=== PATIENT | female | born 1955 | race African-American/Black ===

== ENCOUNTER 2020-09-12 23:13 | Observation (INO) ==
[2020-09-12 23:40] LABS: Basophils # 0.1 10*3/uL (0.0-0.2); Basophils % 0.5 % (0.0-0.8); Eosinophils # 0.3 10*3/uL (0.0-0.87); Eosinophils % 2.3 % (0.00-10.9); Hematocrit 42.1 VOL% (35.7-47.0); Hemoglobin 13.5 GM/DL (12.0-16.0); Immature Granulocytes % 0.4 %; Immature Granulocytes Absolute 0.06 #; Lymphocytes # 3.5 10*3/uL (1.4-4.0); Lymphocytes % 25.9 % (21.3-54.2); Mean Corpuscular HGB Conc 32.1 GM/DL (32-36); Mean Platelet Volume 9.9 FL (9.6-12.0); Monocytes % 6.6 % (1.7-12.7); Neutrophils % 64.3 % (38.7-73.9); Platelet Count 298 T/CUMM (130-400); Red Blood Count 4.84 MC/CUMM (3.8-5.5); Red Cell Distribution Width 13.6 % (9.3-17.3); White Blood Count 13.7 T/CUMM (4-12)
[2020-09-13 00:03] LABS: Alanine Aminotransferase 15 U/L (13-56); Albumin 3.4 G/DL (3.4-5.0); Alkaline Phosphatase 61 U/L (45-117); Aspartate Amino Transferase 20 U/L (0-37); Bilirubin,Total < 0.39 MG/DL (0.2-1.0); Blood Urea Nitrogen 11 MG/DL (7-18); Calcium 8.8 MG/DL (8.5-10.1); Carbon Dioxide 31 MMOL/L (21-32); Estimated Glom Filtration Rate 117 ML/MIN; Glucose 113 MG/DL (74-106); Osmolality,Calculated 278.4 MOS/KG (273-304); PT Patient Result 10.5 SECS (9.8-11.9); Potassium 4.1 MMOL/L (3.5-5.1); Sodium 140 MMOL/L (136-145); Total Protein 6.8 G/DL (6.4-8.3)
[2020-09-13] MEDS ORDERED: PANTOPRAZOLE 40 MG VIAL IV STA (01:18)
[2020-09-13] MEDS ORDERED: ONDANSETRON 4 MG/2 ML VIAL IV PRN (01:18)
[2020-09-13] MEDS ORDERED: MORPHINE 4 MG/1 ML VIAL IV PRN (01:18)
[2020-09-13] MEDS ORDERED: GLUCAGON 1 MG VIAL IM PRN (01:18)
[2020-09-13] MEDS ORDERED: hydrALAZINE 20 MG/1 ML VIAL IV PRN (01:18)
[2020-09-13] MEDS ORDERED: DEXTROSE 50% 25 GM/50 ML VIAL IV PRN (01:18)
[2020-09-13] MEDS ORDERED: NICOTINE 21 MG/24 HR PATCH TRANSDERM PRN (01:18)
[2020-09-13] MEDS ORDERED: NITROGLYCERIN SL 0.4 MG TABLET SL PRN (01:30)
[2020-09-13] MEDS ORDERED: FUROSEMIDE 40 MG TABLET PO PRN (01:30)
[2020-09-13 02:16] LABS: Risk Ratio 3.71; VLDL CHOLESTEROL 18.6 MG/DL
[2020-09-13] MEDS: ALBUTEROL/IPRATROPIUM 3 ML NEB RESP TX SCH ×2 (07:10→13:04)
[2020-09-13] MEDS ORDERED: lisinopriL 20 MG TABLET PO SCH (09:00)
[2020-09-13] MEDS ORDERED: ASPIRIN EC 81 MG TABLET PO SCH (09:00)
[2020-09-13] MEDS ORDERED: PANTOPRAZOLE 40 MG TABLET PO SCH (09:00)
[2020-09-13] MEDS ORDERED: CLOPIDOGREL 75 MG TABLET PO SCH (09:00)
[2020-09-13] MEDS ORDERED: ENOXAPARIN 40 MG/0.4 ML SYRINGE SUBCUT SCH (09:00)
[2020-09-13] MEDS ORDERED: atenoloL 25 MG TABLET PO SCH (09:00)
[2020-09-13 12:07] VITALS: BP 131/69
[2020-09-13] MEDS ORDERED: SIMVASTATIN 20 MG TABLET PO SCH (21:00)
== END 2020-09-13 14:31 | disposition home or self-care (01) ==
LOC: EDUNIT# → EDBD → N.ED 23:13 → N.EDINP 23:13 → N.TELES 09-13 01:41
PROVIDERS: ADMIT Internal Medicine; ATTEND Internal Medicine

== ENCOUNTER 2022-03-22 23:50 | Inpatient (IN) ==
[2022-03-23] MEDS ORDERED: HYDROmorphone 1 MG/1 ML SYRINGE IV STA ×2 (00:25→01:26)
[2022-03-23] MEDS ORDERED: ONDANSETRON 4 MG/2 ML VIAL IV STA (00:25)
[2022-03-23] MEDS ORDERED: SODIUM CHLORIDE 0.9% 1,000 ML IV STA (00:25)
[2022-03-23 00:39] LABS: Basophils # 0.1 10*3/uL (0.0-0.2); Basophils % 0.5 % (0.0-0.8); Eosinophils # 0.2 10*3/uL (0.0-0.87); Eosinophils % 1.4 % (0.00-10.9); Hematocrit 43.8 VOL% (35.7-47.0); Hemoglobin 13.7 GM/DL (12.0-16.0); Immature Granulocytes % 0.5 %; Immature Granulocytes Absolute 0.07 #; Lymphocytes # 2.3 10*3/uL (1.4-4.0); Lymphocytes % 14.6 % (21.3-54.2); Mean Corpuscular HGB Conc 31.3 GM/DL (32-36); Mean Platelet Volume 10.2 FL (9.6-12.0); Monocytes # 0.7 10*3/uL (0.11-0.8); Monocytes % 4.3 % (1.7-12.7); Neutrophils % 78.7 % (38.7-73.9); Platelet Count 255 T/CUMM (130-400); Red Blood Count 4.92 MC/CUMM (3.8-5.5); Red Cell Distribution Width 14.2 % (9.3-17.3); White Blood Count 15.4 T/CUMM (4-12)
[2022-03-23 00:53] LABS: Calcium 9.2 MG/DL (8.5-10.1); Osmolality,Calculated 282.3 MOS/KG (273-304); Potassium 3.8 MMOL/L (3.5-5.1)
[2022-03-23 01:06] LABS: PT Patient Result 10.6 SECS (10.1-12.1); Partial Thromboplastin Time 28.4 SECS (23.7-32.9)
[2022-03-23] MEDS ORDERED: hydrALAZINE 20 MG/1 ML VIAL IV STA (01:26)
[2022-03-23] MEDS ORDERED: ALUMINUM/MAGNES/SIMETH MAX STR 30 ML UDCUP PO PRN (01:30)
[2022-03-23] MEDS ORDERED: ONDANSETRON 4 MG/2 ML VIAL IV PRN ×2 (01:30→15:55)
[2022-03-23] MEDS ORDERED: DEXTROSE 10% 250 ML BAG IV PRN (01:30)
[2022-03-23] MEDS ORDERED: GLUCAGON 1 MG VIAL IM PRN (01:30)
[2022-03-23 02:13] LABS: Bacteria,Urine Occasional /HPF (Few); Bilirubin,Urine Negative (Negative); Glucose,Urine (UA) Negative (Negative); Ketones,Urine Negative (Negative); Mucus,Urine Occasional /LPF (Occasional); Nitrite,Urine Negative (Negative); Protein,Urine Negative (Negative); RBC,Urine 5 /HPF (0-4); Urine Appearance Slightly Cloudy (Clear); Urine Color Light Yellow (Yellow); Urine Specific Gravity 1.015 (1.001-1.035); Urine pH 6.5 (4.5-8.0)
[2022-03-23 02:14] LABS: Blood, Urine Small mg/dL (Negative); Urine Urobilinogen 0.2 eU/dL (<2.0)
[2022-03-23] MEDS ORDERED: CLORAZEPATE 3.75 MG TABLET PO PRN (02:27)
[2022-03-23] MEDS ORDERED: hydrALAZINE 20 MG/1 ML VIAL IV PRN (02:27)
[2022-03-23] MEDS: HYDROmorphone 1 MG/1 ML SYRINGE IV PRN ×2 (05:15→12:30)
[2022-03-23] MEDS ORDERED: PSEUDOEPHEDRINE 30 MG TABLET PO PRN (11:25)
[2022-03-23] MEDS: DOCUSATE SODIUM 100 MG CAPSULE PO SCH ×2 (12:11→21:46)
[2022-03-23] MEDS: PANTOPRAZOLE 40 MG TABLET PO SCH (12:11)
[2022-03-23] MEDS: SODIUM CHLORIDE 0.9% 1,000 ML IV SCH (12:32)
[2022-03-23] MEDS ORDERED: ONDANSETRON 4 MG/2 ML VIAL ONE (13:09)
[2022-03-23] MEDS ORDERED: ETOMIDATE 40 MG/20 ML VIAL IV ONE (13:09)
[2022-03-23] MEDS ORDERED: LIDOCAINE 2% 5 ML VIAL ONE (13:09)
[2022-03-23] MEDS ORDERED: ROCURONIUM 50 MG/5 ML VIAL IV ONE ×2 (13:09→15:20)
[2022-03-23] MEDS ORDERED: fentaNYL 100 MCG/2 ML VIAL ONE (13:09)
[2022-03-23] MEDS ORDERED: DEXAMETHASONE 4 MG/1 ML VIAL ONE (13:09)
[2022-03-23] MEDS ORDERED: propofoL 200 MG/20 ML VIAL IV ONE (13:09)
[2022-03-23] MEDS ORDERED: CLINDAMYCIN INJ 900 MG/50 ML PREMIX IV ONE (13:23)
[2022-03-23] MEDS ORDERED: PHENYLEPHRINE 1 MG/10 ML SYRINGE IV ONE ×2 (14:28→15:06)
[2022-03-23] MEDS ORDERED: SEVOFLURANE 1 UNIT/15 MINUTE INH ONE ×3 (14:30→15:06)
[2022-03-23] MEDS ORDERED: SUGAMMADEX 200 MG/2 ML VIAL IV ONE (15:38)
[2022-03-23] MEDS ORDERED: HYDROmorphone 1 MG/1 ML SYRINGE IV PRN (15:55)
[2022-03-23] MEDS ORDERED: FLUTICASONE 50 MCG NASAL SPRAY 16 GM BOTTLE BOTH NARES PRN (21:14)
[2022-03-23] MEDS ORDERED: predniSONE 10 MG TABLET PO PRN (21:14)
[2022-03-23] MEDS ORDERED: BECLOMETHASONE 80 MCG/PUFF INHALER 8.7 GM INH PRN (21:14)
[2022-03-23] MEDS ORDERED: hydrOXYzine HCL 25 MG TABLET PO PRN (21:14)
[2022-03-23] MEDS ORDERED: NITROGLYCERIN SL 0.4 MG TABLET SL PRN (21:14)
[2022-03-23] MEDS ORDERED: FUROSEMIDE 40 MG TABLET PO PRN (21:14)
[2022-03-23] MEDS: SIMVASTATIN 20 MG TABLET PO SCH (21:44)
[2022-03-23] MEDS: atenoloL 25 MG TABLET PO SCH (21:45)
[2022-03-23] MEDS: CHOLECALCIFEROL 1,000 UNIT TABLET PO SCH (21:45)
[2022-03-23] MEDS: ASPIRIN EC 81 MG TABLET PO SCH (21:46)
[2022-03-23] MEDS: MULTIVITAMIN (CENTRUM) TABLET PO SCH (21:46)
[2022-03-23] MEDS ORDERED: oxyCODONE/ACETAMINOPHEN 5-325 MG TABLET PO PRN (21:55)
[2022-03-23] MEDS ORDERED: diphenhydrAMINE CAP 25 MG CAPSULE PO PRN (21:58)
[2022-03-23] MEDS: BUDESONIDE/FORMOTEROL 160-4.5 INHALER 6 GM INH SCH (22:12)
[2022-03-23] MEDS: LATANOPROST 0.005% OPH SOLN 2.5 ML BOTTLE RIGHT EYE SCH (22:12)
[2022-03-24] MEDS: SODIUM CHLORIDE 0.9% 1,000 ML IV SCH ×2 (02:29→14:20)
[2022-03-24] MEDS: HYDROmorphone 1 MG/1 ML SYRINGE IV PRN ×4 (02:37→22:50)
[2022-03-24 05:24] LABS: Basophils # 0.1 10*3/uL (0.0-0.2); Basophils % 0.3 % (0.0-0.8); Eosinophils # 0.1 10*3/uL (0.0-0.87); Eosinophils % 0.8 % (0.00-10.9); Hematocrit 34.8 VOL% (35.7-47.0); Immature Granulocytes % 0.5 %; Immature Granulocytes Absolute 0.07 #; Lymphocytes # 2.3 10*3/uL (1.4-4.0); Lymphocytes % 15.6 % (21.3-54.2); Mean Corpuscular HGB Conc 31.6 GM/DL (32-36); Mean Corpuscular Volume 88.8 FL (87-102); Mean Platelet Volume 10.4 FL (9.6-12.0); Monocytes # 0.8 10*3/uL (0.11-0.8); Monocytes % 5.6 % (1.7-12.7); Neutrophils % 77.2 % (38.7-73.9); Platelet Count 176 T/CUMM (130-400); Red Blood Count 3.92 MC/CUMM (3.8-5.5); Red Cell Distribution Width 14.3 % (9.3-17.3); White Blood Count 14.6 T/CUMM (4-12)
[2022-03-24 05:37] LABS: Osmolality,Calculated 279.5 MOS/KG (273-304); Potassium 3.6 MMOL/L (3.5-5.1)
[2022-03-24] MEDS ORDERED: BUDESONIDE 0.5 MG/2 ML NEB RESP TX SCH (07:00)
[2022-03-24] MEDS: PANTOPRAZOLE 40 MG TABLET PO SCH (08:38)
[2022-03-24] MEDS: DOCUSATE SODIUM 100 MG CAPSULE PO SCH ×2 (08:38→21:49)
[2022-03-24] MEDS: MULTIVITAMIN (CENTRUM) TABLET PO SCH ×2 (08:38→21:49)
[2022-03-24] MEDS: BUDESONIDE/FORMOTEROL 160-4.5 INHALER 6 GM INH SCH ×2 (08:39→21:46)
[2022-03-24] MEDS: APIXABAN 2.5 MG TABLET PO SCH ×2 (14:23→21:49)
[2022-03-24] MEDS: ACETAMINOPHEN 325 MG TABLET PO PRN (20:06)
[2022-03-24] MEDS: atenoloL 25 MG TABLET PO SCH (21:48)
[2022-03-24] MEDS: SIMVASTATIN 20 MG TABLET PO SCH (21:50)
[2022-03-24] MEDS: ASPIRIN EC 81 MG TABLET PO SCH (21:50)
[2022-03-24] MEDS: CHOLECALCIFEROL 1,000 UNIT TABLET PO SCH (21:52)
[2022-03-24] MEDS: LATANOPROST 0.005% OPH SOLN 2.5 ML BOTTLE RIGHT EYE SCH (21:52)
[2022-03-25] MEDS: SODIUM CHLORIDE 0.9% 1,000 ML IV SCH ×2 (02:46→18:19)
[2022-03-25 05:29] LABS: Basophils # 0.1 10*3/uL (0.0-0.2); Basophils % 0.3 % (0.0-0.8); Eosinophils # 0.2 10*3/uL (0.0-0.87); Eosinophils % 1.3 % (0.00-10.9); Hematocrit 34.3 VOL% (35.7-47.0); Hemoglobin 10.7 GM/DL (12.0-16.0); Immature Granulocytes % 0.5 %; Immature Granulocytes Absolute 0.09 #; Lymphocytes # 1.8 10*3/uL (1.4-4.0); Lymphocytes % 10.1 % (21.3-54.2); Mean Corpuscular HGB Conc 31.2 GM/DL (32-36); Mean Corpuscular Volume 88.4 FL (87-102); Mean Platelet Volume 10.7 FL (9.6-12.0); Monocytes # 1.3 10*3/uL (0.11-0.8); Neutrophils % 80.8 % (38.7-73.9); Platelet Count 171 T/CUMM (130-400); Red Blood Count 3.88 MC/CUMM (3.8-5.5); White Blood Count 18.1 T/CUMM (4-12)
[2022-03-25 05:34] LABS: Calcium 8.3 MG/DL (8.5-10.1); Osmolality,Calculated 278.4 MOS/KG (273-304); Potassium 3.7 MMOL/L (3.5-5.1)
[2022-03-25] MEDS: ACETAMINOPHEN 325 MG TABLET PO PRN (07:37)
[2022-03-25] MEDS: DOCUSATE SODIUM 100 MG CAPSULE PO SCH ×2 (09:25→22:16)
[2022-03-25] MEDS: MULTIVITAMIN (CENTRUM) TABLET PO SCH ×2 (09:25→22:15)
[2022-03-25] MEDS: PANTOPRAZOLE 40 MG TABLET PO SCH (09:25)
[2022-03-25] MEDS: APIXABAN 2.5 MG TABLET PO SCH ×2 (09:25→22:14)
[2022-03-25] MEDS ORDERED: LEVOFLOXACIN INJ 750 MG/150 ML PREMIX IV SCH (09:30)
[2022-03-25] MEDS: BUDESONIDE/FORMOTEROL 160-4.5 INHALER 6 GM INH SCH ×2 (09:30→22:16)
[2022-03-25] MEDS: HYDROmorphone 1 MG/1 ML SYRINGE IV PRN ×2 (09:54→15:29)
[2022-03-25] MEDS: cefTRIAXone 1,000 MG in SODIUM CHLORIDE 0.9% 100 ML IV SCH (12:22)
[2022-03-25] MEDS: DOXYCYCLINE HYCLATE INJ 100 MG in SODIUM CHLORIDE 0.9% 100 ML IV SCH (13:08)
[2022-03-25] MEDS: ASPIRIN EC 81 MG TABLET PO SCH (22:14)
[2022-03-25] MEDS: SIMVASTATIN 20 MG TABLET PO SCH (22:15)
[2022-03-25] MEDS: atenoloL 25 MG TABLET PO SCH (22:15)
[2022-03-25] MEDS: CHOLECALCIFEROL 1,000 UNIT TABLET PO SCH (22:16)
[2022-03-25] MEDS: LATANOPROST 0.005% OPH SOLN 2.5 ML BOTTLE RIGHT EYE SCH (22:17)
[2022-03-26] MEDS: DOXYCYCLINE HYCLATE INJ 100 MG in SODIUM CHLORIDE 0.9% 100 ML IV SCH ×2 (00:50→13:06)
[2022-03-26] MEDS: SODIUM CHLORIDE 0.9% 1,000 ML IV SCH (03:48)
[2022-03-26 05:58] LABS: Basophils # 0.1 10*3/uL (0.0-0.2); Basophils % 0.4 % (0.0-0.8); Eosinophils # 0.5 10*3/uL (0.0-0.87); Eosinophils % 3.2 % (0.00-10.9); Hematocrit 29.2 VOL% (35.7-47.0); Hemoglobin 9.4 GM/DL (12.0-16.0); Immature Granulocytes % 0.5 %; Immature Granulocytes Absolute 0.07 #; Lymphocytes # 1.9 10*3/uL (1.4-4.0); Lymphocytes % 13.4 % (21.3-54.2); Mean Corpuscular HGB Conc 32.2 GM/DL (32-36); Mean Corpuscular Volume 88.2 FL (87-102); Mean Platelet Volume 10.6 FL (9.6-12.0); Monocytes # 1.2 10*3/uL (0.11-0.8); Neutrophils % 74.5 % (38.7-73.9); Platelet Count 166 T/CUMM (130-400); Red Blood Count 3.31 MC/CUMM (3.8-5.5); Red Cell Distribution Width 13.7 % (9.3-17.3); White Blood Count 14.5 T/CUMM (4-12)
[2022-03-26 06:38] LABS: Calcium 8.4 MG/DL (8.5-10.1); Osmolality,Calculated 282.3 MOS/KG (273-304); Potassium 3.5 MMOL/L (3.5-5.1)
[2022-03-26] MEDS: APIXABAN 2.5 MG TABLET PO SCH ×2 (08:28→21:17)
[2022-03-26] MEDS: MULTIVITAMIN (CENTRUM) TABLET PO SCH ×2 (08:28→21:17)
[2022-03-26] MEDS: DOCUSATE SODIUM 100 MG CAPSULE PO SCH ×2 (08:28→21:17)
[2022-03-26] MEDS: HYDROmorphone 1 MG/1 ML SYRINGE IV PRN ×3 (08:28→21:14)
[2022-03-26] MEDS: BUDESONIDE/FORMOTEROL 160-4.5 INHALER 6 GM INH SCH ×2 (08:30→21:17)
[2022-03-26] MEDS: PANTOPRAZOLE 40 MG TABLET PO SCH (08:30)
[2022-03-26] MEDS: cefTRIAXone 1,000 MG in SODIUM CHLORIDE 0.9% 100 ML IV SCH (11:35)
[2022-03-26] MEDS: CHOLECALCIFEROL 1,000 UNIT TABLET PO SCH (21:16)
[2022-03-26] MEDS: atenoloL 25 MG TABLET PO SCH (21:16)
[2022-03-26] MEDS: LATANOPROST 0.005% OPH SOLN 2.5 ML BOTTLE RIGHT EYE SCH (21:16)
[2022-03-26] MEDS: SIMVASTATIN 20 MG TABLET PO SCH (21:16)
[2022-03-26] MEDS: ASPIRIN EC 81 MG TABLET PO SCH (21:17)
[2022-03-27] MEDS: DOXYCYCLINE HYCLATE INJ 100 MG in SODIUM CHLORIDE 0.9% 100 ML IV SCH ×3 (00:50→23:12)
[2022-03-27] MEDS: HYDROmorphone 1 MG/1 ML SYRINGE IV PRN ×3 (00:51→16:55)
[2022-03-27] MEDS: SODIUM CHLORIDE 0.9% 1,000 ML IV SCH (01:05)
[2022-03-27 05:02] LABS: Basophils # 0.1 10*3/uL (0.0-0.2); Basophils % 0.4 % (0.0-0.8); Eosinophils # 0.6 10*3/uL (0.0-0.87); Hematocrit 26.2 VOL% (35.7-47.0); Hemoglobin 8.4 GM/DL (12.0-16.0); Immature Granulocytes % 0.6 %; Immature Granulocytes Absolute 0.07 #; Lymphocytes # 2.2 10*3/uL (1.4-4.0); Lymphocytes % 17.6 % (21.3-54.2); Mean Corpuscular HGB Conc 32.1 GM/DL (32-36); Mean Corpuscular Volume 87.3 FL (87-102); Mean Platelet Volume 10.8 FL (9.6-12.0); Monocytes # 1.1 10*3/uL (0.11-0.8); Monocytes % 8.8 % (1.7-12.7); Neutrophils % 67.6 % (38.7-73.9); Platelet Count 181 T/CUMM (130-400); Red Cell Distribution Width 13.5 % (9.3-17.3); White Blood Count 12.6 T/CUMM (4-12)
[2022-03-27 05:24] LABS: Calcium 8.2 MG/DL (8.5-10.1); Osmolality,Calculated 281.1 MOS/KG (273-304); Potassium 3.4 MMOL/L (3.5-5.1)
[2022-03-27] MEDS ORDERED: POTASSIUM CHLORIDE 20 MEQ TABLET PO ONE (08:00)
[2022-03-27] MEDS: PANTOPRAZOLE 40 MG TABLET PO SCH (08:28)
[2022-03-27] MEDS: DOCUSATE SODIUM 100 MG CAPSULE PO SCH ×2 (08:28→20:31)
[2022-03-27] MEDS: APIXABAN 2.5 MG TABLET PO SCH ×2 (08:28→20:31)
[2022-03-27] MEDS: BUDESONIDE/FORMOTEROL 160-4.5 INHALER 6 GM INH SCH ×2 (08:29→20:31)
[2022-03-27] MEDS: MULTIVITAMIN (CENTRUM) TABLET PO SCH ×2 (08:29→20:30)
[2022-03-27] MEDS: cefTRIAXone 1,000 MG in SODIUM CHLORIDE 0.9% 100 ML IV SCH (10:42)
[2022-03-27] MEDS: ASPIRIN EC 81 MG TABLET PO SCH (20:30)
[2022-03-27] MEDS: SIMVASTATIN 20 MG TABLET PO SCH (20:31)
[2022-03-27] MEDS: CHOLECALCIFEROL 1,000 UNIT TABLET PO SCH (20:31)
[2022-03-27] MEDS: LATANOPROST 0.005% OPH SOLN 2.5 ML BOTTLE RIGHT EYE SCH (20:32)
[2022-03-27] MEDS: atenoloL 25 MG TABLET PO SCH (20:33)
[2022-03-28 03:02] LABS: Bilirubin,Urine Negative (Negative); Blood, Urine Trace mg/dL (Negative); Glucose,Urine (UA) Negative (Negative); Ketones,Urine Negative (Negative); Nitrite,Urine Negative (Negative); Protein,Urine Trace mg/dL (Negative); RBC,Urine 2 /HPF (0-4); Squamous Epithelial Cell,Urine Occasional /HPF (0-10); Urine Appearance Clear (Clear); Urine Color Yellow (Yellow); Urine Urobilinogen 0.2 eU/dL (<2.0)
[2022-03-28 03:03] LABS: Bacteria,Urine Occasional /HPF (Few); Mucus,Urine Occasional /LPF (Occasional)
[2022-03-28 05:00] LABS: Basophils # 0.1 10*3/uL (0.0-0.2); Basophils % 0.4 % (0.0-0.8); Eosinophils # 0.6 10*3/uL (0.0-0.87); Eosinophils % 4.9 % (0.00-10.9); Hematocrit 25.9 VOL% (35.7-47.0); Hemoglobin 8.2 GM/DL (12.0-16.0); Immature Granulocytes % 0.4 %; Immature Granulocytes Absolute 0.05 #; Lymphocytes # 1.9 10*3/uL (1.4-4.0); Lymphocytes % 16.1 % (21.3-54.2); Mean Corpuscular HGB Conc 31.7 GM/DL (32-36); Mean Corpuscular Volume 87.5 FL (87-102); Mean Platelet Volume 10.6 FL (9.6-12.0); Monocytes # 0.9 10*3/uL (0.11-0.8); Monocytes % 7.6 % (1.7-12.7); Neutrophils % 70.6 % (38.7-73.9); Platelet Count 202 T/CUMM (130-400); Red Blood Count 2.96 MC/CUMM (3.8-5.5); Red Cell Distribution Width 13.4 % (9.3-17.3); White Blood Count 11.7 T/CUMM (4-12)
[2022-03-28 05:16] LABS: Calcium 8.2 MG/DL (8.5-10.1); Osmolality,Calculated 281.1 MOS/KG (273-304); Potassium 3.3 MMOL/L (3.5-5.1)
[2022-03-28] MEDS ORDERED: POTASSIUM CHLORIDE 20 MEQ TABLET PO ONE (08:30)
[2022-03-28] MEDS: DOCUSATE SODIUM 100 MG CAPSULE PO SCH (09:09)
[2022-03-28] MEDS: APIXABAN 2.5 MG TABLET PO SCH (09:09)
[2022-03-28] MEDS: MULTIVITAMIN (CENTRUM) TABLET PO SCH (09:09)
[2022-03-28] MEDS: PANTOPRAZOLE 40 MG TABLET PO SCH (09:09)
[2022-03-28] MEDS: BUDESONIDE/FORMOTEROL 160-4.5 INHALER 6 GM INH SCH (09:10)
[2022-03-28] MEDS: HYDROmorphone 1 MG/1 ML SYRINGE IV PRN (11:37)
[2022-03-28] MEDS: cefTRIAXone 1,000 MG in SODIUM CHLORIDE 0.9% 100 ML IV SCH (11:38)
[2022-03-28] MEDS: DOXYCYCLINE HYCLATE INJ 100 MG in SODIUM CHLORIDE 0.9% 100 ML IV SCH (12:35)
[2022-03-28 15:45] VITALS: BP 124/76
== END 2022-03-28 16:00 | disposition swing bed (61) | DRG 522 ==
LOC: N.ED 23:50 → N.EDINP 03-23 01:30 → N.3E 03-23 03:00
PROVIDERS: ADMIT Internal Medicine; ATTEND Internal Medicine

== ENCOUNTER 2022-08-07 22:52 | Observation (INO) ==
[2022-08-07] MEDS ORDERED: LABETALOL 100 MG/20 ML VIAL IV STA (23:35)
[2022-08-08 00:39] LABS: Alanine Aminotransferase 14 U/L (13-56); Albumin 3.9 G/DL (3.4-5.0); Alkaline Phosphatase 71 U/L (45-117); Amylase 28 U/L (25-115); Aspartate Amino Transferase 14 U/L (0-37); Bilirubin,Total < 0.39 MG/DL (0.20-1.00); Blood Urea Nitrogen 11 MG/DL (7-18); Calcium 9.2 MG/DL (8.5-10.1); Carbon Dioxide 26 MMOL/L (21-32); Chloride 108 MMOL/L (98-107); Glucose 118 MG/DL (74-106); Osmolality,Calculated 280.3 MOS/KG (273-304); Potassium 3.6 MMOL/L (3.5-5.1); Sodium 141 MMOL/L (136-145); Total Protein 7.2 G/DL (6.4-8.2)
[2022-08-08 00:53] LABS: Basophils # 0.1 10*3/uL (0.0-0.2); Basophils % 0.5 % (0.0-0.8); Eosinophils # 0.3 10*3/uL (0.0-0.87); Eosinophils % 2.2 % (0.00-10.9); Hematocrit 39.7 VOL% (35.7-47.0); Hemoglobin 13.1 GM/DL (12.0-16.0); Immature Granulocytes % 0.3 %; Immature Granulocytes Absolute 0.04 #; Lymphocytes # 3.3 10*3/uL (1.4-4.0); Lymphocytes % 25.6 % (21.3-54.2); Mean Corpuscular Volume 83.9 FL (87-102); Mean Platelet Volume 10.1 FL (9.6-12.0); Monocytes # 0.6 10*3/uL (0.11-0.8); Monocytes % 4.5 % (1.7-12.7); Neutrophils % 66.9 % (38.7-73.9); Platelet Count 273 T/CUMM (130-400); Red Blood Count 4.73 MC/CUMM (3.8-5.5)
[2022-08-08] MEDS ORDERED: ONDANSETRON 4 MG/2 ML VIAL IV PRN (03:43)
[2022-08-08] MEDS ORDERED: ACETAMINOPHEN 325 MG TABLET PO PRN (03:43)
[2022-08-08] MEDS: LABETALOL 20 MG/4 ML SYRINGE IV PRN ×2 (05:24→07:10)
[2022-08-08 07:49] LABS: Basophils # 0.1 10*3/uL (0.0-0.2); Basophils % 0.6 % (0.0-0.8); Eosinophils # 0.3 10*3/uL (0.0-0.87); Eosinophils % 2.3 % (0.00-10.9); Hematocrit 39.3 VOL% (35.7-47.0); Hemoglobin 12.6 GM/DL (12.0-16.0); Immature Granulocytes % 0.5 %; Immature Granulocytes Absolute 0.05 #; Mean Corpuscular HGB Conc 32.1 GM/DL (32-36); Mean Corpuscular Volume 84.7 FL (87-102); Mean Platelet Volume 9.5 FL (9.6-12.0); Monocytes # 0.6 10*3/uL (0.11-0.8); Monocytes % 5.2 % (1.7-12.7); Neutrophils % 64.4 % (38.7-73.9); Platelet Count 258 T/CUMM (130-400); Red Blood Count 4.64 MC/CUMM (3.8-5.5); Red Cell Distribution Width 15.1 % (9.3-17.3)
[2022-08-08] MEDS ORDERED: hydrALAZINE 20 MG/1 ML VIAL IV ONE (08:24)
[2022-08-08 09:21] LABS: Alanine Aminotransferase 13 U/L (13-56); Albumin 3.7 G/DL (3.4-5.0); Alkaline Phosphatase 62 U/L (45-117); Aspartate Amino Transferase 14 U/L (0-37); Bilirubin,Total < 0.39 MG/DL (0.20-1.00); Blood Urea Nitrogen 9 MG/DL (7-18); Calcium 9.4 MG/DL (8.5-10.1); Carbon Dioxide 27 MMOL/L (21-32); Chloride 108 MMOL/L (98-107); Cholesterol 145 MG/DL (50-200); Glucose 94 MG/DL (74-106); HDL Cholesterol 34 MG/DL (40-60); Osmolality,Calculated 281.1 MOS/KG (273-304); Potassium 3.6 MMOL/L (3.5-5.1); Risk Ratio 4.26; Sodium 142 MMOL/L (136-145); Total Protein 6.9 G/DL (6.4-8.2); Triglycerides 129 MG/DL (2-150); VLDL Cholesterol 25.8 MG/DL
[2022-08-08] MEDS: hydroCHLOROthiazide 12.5 MG CAPSULE PO SCH (10:11)
[2022-08-08] MEDS: carvediloL 25 MG TABLET PO SCH ×2 (10:11→16:25)
[2022-08-08] MEDS ORDERED: ASPIRIN EC 81 MG TABLET PO SCH (21:00)
[2022-08-08] MEDS ORDERED: CLOPIDOGREL 75 MG TABLET PO SCH (21:00)
[2022-08-08] MEDS ORDERED: SIMVASTATIN 20 MG TABLET PO SCH (21:00)
[2022-08-09] MEDS: carvediloL 25 MG TABLET PO SCH (08:15)
[2022-08-09] MEDS: hydroCHLOROthiazide 12.5 MG CAPSULE PO SCH (08:15)
[2022-08-09 12:34] VITALS: BP 94/59
== END 2022-08-09 15:09 | disposition home or self-care (01) ==
LOC: EDUNIT# → EDBD → N.ED 22:52 → N.EDINP 22:52 → SUATTDRO 08-08 03:43 → N.2E 08-08 05:00
PROVIDERS: ADMIT Internal Medicine; ATTEND Internal Medicine